=== PATIENT | male | born 1995 | race Caucasian/White ===

== ENCOUNTER 2018-05-24 21:03 | Emergency (ER) | payer BC ==
[2018-05-24 21:18] VITALS: TEMP 98.4; O2SAT 99
--- NOTE | 2018-05-24 21:30 | ED.PDOC ---
History of Present Illness - General Chief Complaint: Laceration Stated Complaint: lac to bottom right foot Time Seen by Provider: 05/24/18 21:28 Source: patient Exam Limitations: no limitations - History of Present Illness Initial Comments: the patient is a 23-year-old male presenting to emergency room secondary to a laceration to the plantar aspect of his right foot. He has a V-shaped skin tear over the pad of the fifth digit of the right foot. He was trying to pull in a boat with his foot when it slipped and tore. Each angle of the v is approximately three quarters of an inch in length. The tear went between the thickened epidermis and dermis. it Does not go through the dermis. Bleeding has been very minimal. He is up-to-date on his vaccines. Timing/Duration: 1/2 hour Severity: moderate Improving Factors: nothing Worsening Factors: nothing Home Medications: Ambulatory Orders Sulfa/Trimeth 800/160 (Ds) Tab [Bactrim DS Tab] 1 ea PO DAILY #5 tab 05/24/18 Review of Systems - Review of Systems Constitutional: States: no symptoms reported EENTM: States: no symptoms reported Respiratory: States: no symptoms reported Cardiology: States: no symptoms reported Gastrointestinal/Abdominal: States: no symptoms reported Genitourinary: States: no symptoms reported Musculoskeletal: States: no symptoms reported Skin: States: see HPI Neurological: States: no symptoms reported Endocrine: States: no symptoms reported All other Systems: No Change from Baseline Past Medical History (General) - Patient Medical History Surgical History: no surgical history - Vaccination History Hx Tetanus, Diphtheria Vaccination: Yes - 2009 - Triage Comment ED Triage Comment: lac to bottom rt foot Family Medical History - Family History Father Family History: Unknown Physical Exam - Physical Exam General Appearance: Alert, Comfortable, No apparent distress Eye Exam: bilateral normal Ears, Nose, Throat: hearing grossly normal Neck: full range of motion Respiratory: no respiratory distress, no accessory muscle use Cardiovascular/Chest: normal peripheral pulses, no edema Peripheral Pulses: dorsalis pedis,right: 2+, dorsalis pedis,left: 2+, posterior tibialis,right: 2+, posterior tibialis,left: 2+ Rectal Exam: deferred Extremity: normal range of motion, no pedal edema, no calf tenderness, normal capillary refill Neurologic: 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 It was irrigated with 250 cc of saline and then cleaned with hydrogen peroxide. Steri-Strips and benzoin were used for reapproximation of the tissue. I do not expect the tissue to seal back down. The skin tear flap will and retract and he can cut it off at the base in 3 or 4 days with scissors or finger nail clippers. He needs to try and keep it dry and clean until then. After the Steri-Strips come off he can cover it with a Band-Aid and triple antibiotic ointment daily after he washes it. He'll be placed on Bactrim daily for 5 days with the first dose being received now. Needs to monitor for any evidence of infection. ER warnings were given. Departure - Departure Clinical Impression: Tear of skin of plantar aspect of foot Qualifiers: Encounter type: initial encounter Laterality: right Qualified Code(s): S91.311A - Laceration without foreign body, right foot, initial encounter Disposition: Discharge to Home or Self Care Condition: Fair Departure Forms: ED Discharge - Pt. Copy, Patient Portal Self Enrollment Instructions: DI for Laceration Repair, DI for Laceration Repair Steri-Strips Diet: regular diet Activity: increase activity as tolerated Prescriptions: Sulfa/Trimeth 800/160 (Ds) Tab [Bactrim DS Tab] 1 ea PO DAILY #5 tab Home Medications: Ambulatory Orders Sulfa/Trimeth 800/160 (Ds) Tab [Bactrim DS Tab] 1 ea PO DAILY #5 tab 05/24/18 Additional Instructions: the patient is a 23-year-old male presenting to the emergency room with a V- shaped skin tear to the bottom of his right foot over the pad proximal to his fifth digit. It was irrigated with 250 cc of saline and then cleaned with hydrogen peroxide. Steri-Strips and benzoin were used for reapproximation of the tissue. I do not expect the tissue to seal back down. The skin tear flap will and retract and he can cut it off at the base in 3 or 4 days with scissors or finger nail clippers. He needs to try and keep it dry and clean until then. After the Steri-Strips come off he can cover it with a Band-Aid and triple antibiotic ointment daily after he washes it. He'll be placed on Bactrim daily for 5 days with the first dose being received now. Needs to monitor for any evidence of infection. ER warnings were given.
[2018-05-24] MEDS ORDERED: SULFA/TRIMETH 800/160 (DS) TAB 1 EA TAB PO ONE (21:33)
[2018-05-24 21:45] VITALS: BP 132/91
== END 2018-05-24 21:45 | disposition home or self-care (01) ==
LOC: EDBD 21:03 → ER 21:03
DX: S91.311A Laceration without foreign body, right foot, initial encounter (principal); W22.8XXA Striking against or struck by other objects, initial encounter; Y92.814 Boat as the place of occurrence of the external cause